=== PATIENT | female | born 1980 | race Caucasian/White ===

== ENCOUNTER 2024-04-01 09:53 | Day surgery (SDC) | payer BC ==
[~2024-04-01] VITALS: Ht 165.1 cm; Wt 84.8 kg
[~2024-04-01 09:53] MED LIST: LEVO125T4 PO; NS 1,000 ML IV ONE; SYNT137T7 PO
[2024-04-01] MEDS ORDERED: propofoL 500 MG/50 ML VIAL As Ordered ONE (11:03)
[2024-04-01] MEDS ORDERED: LIDOCAINE 2% 100MG/5ML SDV (FOR ANES.) As Ordered ONE (11:03)
[2024-04-01 11:45] VITALS: TEMP 97.2
[2024-04-01 12:21] VITALS: BP 100/59; O2SAT 100
== END 2024-04-01 12:22 | disposition home or self-care (01) ==
LOC: M OPP 09:53
PROVIDERS: ATTEND Internal Medicine Gastroenterology
DX: Z12.11 Encounter for screening for malignant neoplasm of colon (principal); K63.5 Polyp of colon; Z86.010 Personal history of colon polyps; K57.30 Diverticulosis of large intestine without perforation or abscess without bleeding; K64.8 Other hemorrhoids; K64.4 Residual hemorrhoidal skin tags; K62.89 Other specified diseases of anus and rectum; K21.9 Gastro-esophageal reflux disease without esophagitis; E03.9 Hypothyroidism, unspecified; Z79.890 Hormone replacement therapy